=== PATIENT | male | born 1985 | race African-American/Black ===

== ENCOUNTER 2016-07-26 11:00 | Emergency (ER) | payer SELFPAY ==
[~2016-07-26] VITALS: Ht 160 cm; Wt 69.1 kg
[~2016-07-26 11:00] MED LIST: ZOFR4TAB3 SL
[2016-07-26 11:01] VITALS: BP 119/73; PULSE 66; RESP 18; TEMP 98; O2SAT 98
--- NOTE | 2016-07-26 11:34 | PD ---
Physical Exam Date Seen by Provider: Jul 26, 2016 Time Seen by Provider: 11:31 Narrative 30 year old male presents to the emergency department for evaluation of a rash to his back that started yesterday. No fevers. No history of IVDU. Patient has associated pruritus. This occurred after leaning up against a tree. VSS. Patient awaiting bed placement. Data Data Last Documented VS Vital Signs Date Time Temp Pulse Resp B/P Pulse Ox O2 Delivery O2 Flow Rate FiO2 07/26/16 11:01 98.0 66 18 119/73 98 MDM Supervised Visit with DIANA: Magalie Thomas Jul 26, 2016 11:34
--- NOTE | 2016-07-26 11:46 | PD ---
HPI . rash to back for 2 days Chief Complaint: Skin Problem Time Seen by Provider: 11:46 Travel History International Travel<30 days: No Contact w/Intl Traveler<30days: No Traveled to known affect area: No History of Present Illness HPI 30-year-old male here with complaints of a rash to his back for approximately 2 days. Patient leaned up against some unknown type of tree and says that immediately he developed a itchy rash to his back. He decided to come to the emergency department for further evaluation. He denies any angioedema, shortness of breath or throat swelling. He complains of an itchy rash. He denies any pain. He has no other complaints. PFSH Past Medical History Diminished Hearing: No Immunizations Current: Yes Past Surgical History Oral Surgery: Yes (wisdom teeth extracted) Other Surgery: Yes (WISDOM TOOTH EXTRACTION) Social History Alcohol Use: No Tobacco Use: No Substance Use: No Allergies-Medications (Allergen,Severity, Reaction): Coded Allergies: No Known Allergies (Unverified , 07/26/16) Reported Meds & Prescriptions Reported Meds & Active Scripts Active Zofran ODT (Ondansetron HCl) 4 Mg Tab 4 Mg SL Q6H PRN Review of Systems General / Constitutional: No: Fever Eyes: No: Visual changes HENT: No: Headaches Cardiovascular: No: Chest Pain or Discomfort Respiratory: No: Shortness of Breath Gastrointestinal: No: Abdominal Pain Genitourinary: No: Dysuria Musculoskeletal: No: Pain Skin: Positive Rash, Positive Itching Neurologic: No: Weakness Psychiatric: No: Depression Endocrine: No: Polydipsia Hematologic/Lymphatic: No: Easy Bruising Physical Exam Narrative GENERAL: AAO x 3, no acute distress, Well-nourished, well-developed patient. SKIN: Warm and dry. macular rash to back without any evidence of cellulitis. No blisters or pustules. No hives. no specific distribution. Matches patient's reports of where tree touched HEAD: Normocephalic and atraumatic. EYES: No scleral icterus. No injection or drainage. ENT: No nasal drainage noted. Mucous membranes pink. Airway patent. NECK: Supple, trachea midline. No JVD. CARDIOVASCULAR: Regular rate and rhythm without murmurs, gallops, or rubs. RESPIRATORY: Breath sounds equal bilaterally. No accessory muscle use. No rhonchi or rales. GASTROINTESTINAL: Abdomen soft, non-tender, nondistended. EXTREMITIES: No cyanosis or edema. BACK: Nontender without obvious deformity. No CVA tenderness. PSYCH: AAO x 3, normal affect. Data Data Last Documented VS Vital Signs Date Time Temp Pulse Resp B/P Pulse Ox O2 Delivery O2 Flow Rate FiO2 07/26/16 11:01 98.0 66 18 119/73 98 MDM Medical Decision Making Medical Screen Exam Complete: Yes Emergency Medical Condition: Yes Medical Record Reviewed: Yes Differential Diagnosis Contact dermatitis, less likely scabies, less likely cellulitis Narrative Course 30-year-old male here with complaints of a rash to his back for approximately 2 days. Patient leaned up against some unknown type of tree and says that immediately he developed a itchy rash to his back. He decided to come to the emergency department for further evaluation. He denies any angioedema, shortness of breath or throat swelling. He complains of an itchy rash. He denies any pain. He has no other complaints. Patient seen and examined. He appears to have a contact dermatitis where he was leaned up against a tree. He does not have any signs of acute anaphylactic reaction. He will benefit from a short course of prednisone. He can use topical hydrocortisone cream for anti-itch relief. He has been advised to follow-up with his primary care provider. Patient verbalized understanding of instructions, questions were answered, and thanked me for their care. I advised them if their condition worsens, please return to the nearest emergency room for further care. Diagnosis Primary Impression: Contact dermatitis Qualified Code: L23.7 - Allergic contact dermatitis due to plants, except food Patient Instructions: General Instructions Additional Instructions: Please return to emergency department if your symptoms return or worsen. Follow up with your primary care provider. Take medications as prescribed. You can use [id number] hydrocortisone cream or calamine lotion. Med/Other Pt SpecificInfo: Prescription(s) given Scripts Methylprednisolone Dosepak (Medrol Dosepak)4 Mg Dspk4 Mg PO DIRECTED #1 DSPK Ref 0 Per Pharmacist direction Prov:Lupillo Aquino MD 07/26/16 Disposition: 01 DISCHARGE HOME Condition: Stable Anisa Rivera Jul 26, 2016 11:46
[2016-07-26] MEDS ORDERED: MEDR4PAK PO (11:51)
== END 2016-07-26 12:01 | disposition home or self-care (01) ==
LOC: NEPK 11:00
DX: L23.7 Allergic contact dermatitis due to plants, except food (principal)
CPT/HCPCS: 99282

== ENCOUNTER 2016-08-18 13:38 | Emergency (ER) | payer SELFPAY ==
[~2016-08-18] VITALS: Ht 165.1 cm; Wt 75.0 kg
[~2016-08-18 13:38] MED LIST changes: +MEDR4PAK PO
[2016-08-18 13:40] VITALS: BP 124/74; PULSE 89; RESP 15; TEMP 98.2; O2SAT 98
[2016-08-18] MEDS ORDERED: ONDANSETRON ODT 4 MG TAB PO ONE (14:00)
[2016-08-18] MEDS ORDERED: ZOFR4TAB3 SL (14:47)
--- NOTE | 2016-08-18 14:47 | PD ---
HPI Chief Complaint: GI Complaint Time Seen by Provider: 13:48 Travel History International Travel<30 days: No Contact w/Intl Traveler<30days: No Traveled to known affect area: No History of Present Illness HPI Patient is an otherwise healthy 30-year-old male presents emergency department for evaluation of nausea and vomiting nonbilious and nonbloody. Patient states he went out with his family last night and though he normally does not drink brown blood. Brown liquor last night. He denies any abdominal pain headaches diarrhea. Denies any fevers. States he was not able to tolerate some fluids at home so came in to be seen. [facility] Past Medical History Diminished Hearing: No Immunizations Current: Yes Tetanus Vaccination: Unknown Influenza Vaccination: Yes Past Surgical History Surgical History: No Previous Surgery Oral Surgery: Yes (wisdom teeth extracted) Other Surgery: Yes (WISDOM TOOTH EXTRACTION) Social History Alcohol Use: Yes (occ, drank last night(heavy)) Tobacco Use: No Substance Use: No Allergies-Medications (Allergen,Severity, Reaction): Coded Allergies: No Known Allergies (Unverified , 08/18/16) Reported Meds & Prescriptions Reported Meds & Active Scripts Active Review of Systems Except as stated in HPI: all other systems reviewed are Neg Physical Exam Narrative GENERAL: Well-developed well-nourished no apparent distress SKIN: Focused skin assessment warm/dry. HEAD: Atraumatic. Normocephalic. EYES: Pupils equal and round. No scleral icterus. No injection or drainage. ENT: No nasal bleeding or discharge. Mucous membranes pink and moist. NECK: Trachea midline. No JVD. CARDIOVASCULAR: Regular rate and rhythm. No murmur appreciated. RESPIRATORY: No accessory muscle use. Clear to auscultation. Breath sounds equal bilaterally. GASTROINTESTINAL: Abdomen soft, non-tender, nondistended. Hepatic and splenic margins not palpable. No rebound no percussive tenderness no epigastric tenderness. MUSCULOSKELETAL: No obvious deformities. No clubbing. No cyanosis. No edema. NEUROLOGICAL: Awake and alert. No obvious cranial nerve deficits. Motor grossly within normal limits. Normal speech. PSYCHIATRIC: Appropriate mood and affect; insight and judgment normal. Data Data Last Documented VS Vital Signs Date Time Temp Pulse Resp B/P Pulse Ox O2 Delivery O2 Flow Rate FiO2 08/18/16 13:40 98.2 89 15 124/74 98 Orders Ondansetron Odt (Zofran Odt) (08/18/16 14:00) MDM Medical Decision Making Medical Screen Exam Complete: Yes Emergency Medical Condition: Yes Differential Diagnosis Pancreatitis unlikely, acute cholecystitis unlikely, gastritis likely alcohol- related, significant dehydration unlikely. Narrative Course Patient 30-year-old male who is appearing well hydrated with nausea and vomiting without pain. He was given Zofran ODT and has been able to tolerate by mouth liquids. I doubt by his physical exam significant dehydration. His abdomen is benign. There is no indication for further workup at this time. Discussed with them symptomatic management at home and return to ED criteria. Discussed need for follow-up the primary care physician. Diagnosis Primary Impression: Gastritis Qualified Code: K29.20 - Alcoholic gastritis, presence of bleeding unspecified , unspecified chronicity Patient Instructions: General Instructions Departure Forms: Tests/Procedures Med/Other Pt SpecificInfo: Prescription(s) given Scripts Ondansetron Odt (Zofran Odt)4 Mg Tab4 Mg SL Q6HR PRN (Nausea/Vomiting) #30 TAB Ref 0 Prov:Kai Dietrich MD 08/18/16 Disposition: 01 DISCHARGE HOME Condition: Stable Kai Dietrich MD Aug 18, 2016 14:47
== END 2016-08-18 14:49 | disposition home or self-care (01) ==
LOC: NEPD 13:38
DX: K29.70 Gastritis, unspecified, without bleeding (principal)
CPT/HCPCS: 99283